=== PATIENT | female | born 1935 | race Caucasian/White ===

== ENCOUNTER 2020-08-04 21:21 | Emergency (ER) | payer MEDICARE, OTHER ==
[~2020-08-04] VITALS: Ht 149.9 cm; Wt 49.9 kg
[2020-08-04 21:26] VITALS: BP_SYST 153
[2020-08-04 22:43] LABS: BASOPHILS # (AUTO) 0.1 K/uL (0.0-0.2); EOSINOPHILS # (AUTO) 0.1 K/uL (0.0-0.4); EOSINOPHILS % (AUTO) 0.9 % (0.0-4.0); HEMATOCRIT 42.2 % (36-48); HEMOGLOBIN 13.9 g/dL (12.0-16.0); LYMPHOCYTES # (AUTO) 1.1 K/uL (1.0-5.5); MEAN CORPUSCULAR HEMOGLOBIN 30 pg (27-31); MEAN CORPUSCULAR HGB CONC 33 % (32-36); MEAN CORPUSCULAR VOLUME 92 fL (79.0-98.0); MONOCYTES # (AUTO) 0.8 K/uL (0.0-1.0); MONOCYTES % (AUTO) 5.4 % (1.7-9.3); NEUTROPHILS # (AUTO) 12.2 K/uL (1.8-7.7); NEUTROPHILS % (AUTO) 84.7 % (40.0-70.0); PLATELET COUNT (AUTO) 308 K/uL (130-430); RED BLOOD CELL COUNT(AUTO) 4.57 MIL/uL (4.2-6.2); RED CELL DISTRIBUTION WIDTH 13.7 % (9.0-15.0); WHITE BLOOD COUNT (AUTO) 14.4 K/uL (4.8-10.8)
[2020-08-04 22:51] LABS: ANION GAP 13 (5-15); CALCIUM 9.2 mg/dL (8.4-11.0); CHLORIDE 107 mmol/L (98-107); GLUCOSE 104 mg/dL (70-99); POTASSIUM 3.9 mmol/L (3.5-5.1); SODIUM SERUM 144 mmol/L (136-145); UREA NITROGEN, BLOOD 16 mg/dL (8-21)
[2020-08-04 23:03] LABS: ALANINE AMINOTRANSFERASE 16 U/L (12-78); ALBUMIN 3.9 g/dL (3.4-4.8); ASPARTATE AMINOTRANSFERASE 19 U/L (10-37); LIPASE 143 U/L (73-393); TOTAL BILIRUBIN 0.2 mg/dL (0.0-1.0)
[2020-08-05 01:28] LABS: BILIRUBIN,URINE NEGATIVE (NEGATIVE); BLOOD, URINE 1+ (NEGATIVE); CLARITY/URINE CLEAR (CLEAR); COLOR,URINE YELLOW (YELLOW); GLUCOSE,URINE NEGATIVE (NEGATIVE); KETONES,URINE NEGATIVE (NEGATIVE); LEUKOCYTE ESTERASE ,URINE 1+ (NEGATIVE); NITRITE, URINE POSITIVE (NEGATIVE); PH,URINE 5.5 (5.0-8.0); PROTEIN URINE NEGATIVE (NEGATIVE); UROBILINOGEN,URINE 0.2 (0.2-1.0)
[2020-08-05 01:35] LABS: BACTERIA,URINE MANY /HPF (None Seen)
[2020-08-05] MEDS ORDERED: NITROFURANTOIN MONOHYD/M-CRYST 100 MG CAPSULE (MacroBID) PO ONE ×2 (02:24→02:30)
[2020-08-05] MEDS ORDERED: NITR-85 PO (02:27)
[2020-08-05 02:35] VITALS: BP_SYST 153
== END 2020-08-05 02:35 | disposition home or self-care (01) ==
LOC: SED 21:21
DX: N39.0 Urinary tract infection, site not specified (principal); Z88.5 Allergy status to narcotic agent; Z79.899 Other long term (current) drug therapy
CPT/HCPCS: 36415; 76376; 80053; 81000; 83605; 83690; 84484; 85025; 87086; 93005; 99285